=== PATIENT | female | born 1985 | race Asian ===

== ENCOUNTER 2023-11-14 21:11 | Emergency (ER) | payer SELFPAY ==
[~2023-11-14] VITALS: Ht 157.5 cm; Wt 70.0 kg
[2023-11-14 21:25] VITALS: O2SAT 94
[2023-11-14 23:28] VITALS: BP 113/68; PULSE 68; RESP 14; O2SAT 99
== END 2023-11-15 08:46 | disposition home or self-care (01) ==
LOC: ER 21:11
DX: F10.129 Alcohol abuse with intoxication, unspecified (principal); Y90.9 Presence of alcohol in blood, level not specified
CPT/HCPCS: 99283